=== PATIENT | female | born 1995 ===

== ENCOUNTER → 2023-01-18 13:46 | Outpatient (CLI) | payer OTHER, SELFPAY ==
--- NOTE | 2023-01-18 | DI.RAD.S_ITS ---
PROCEDURE: XR ACUTE ABDOMEN SERIES INDICATIONS: constipation TECHNIQUE: One view chest and two views of the abdomen were acquired. COMPARISON: None. FINDINGS: Surgical changes and devices: None. Chest: Lungs are clear. Heart size is normal. No pleural effusions. No pneumoperitoneum. Abdomen: The bowel gas pattern is nonobstructive. Stomach and small bowel loops appear decompressed. There is some air in the ascending and transverse colon to a normal degree. A normal amount of stool projects over the pelvis, either in the cecum or redundant sigmoid colon. The descending colon is decompressed without significant stool burden. There are no suspicious calcifications. The organ shadows are normal. Bones: No suspicious bony lesions. IMPRESSION: 1. No radiographic evidence of obstipation at this point. 2. No evidence of bowel obstruction. Dictated by: Tosin Cunningham M.D. on 01/18/2023 at 15:55 Approved by: Tosin Cunningham M.D. on 01/18/2023 at 15:58
== END ==
PROVIDERS: PCP Student in an Organized Health Care Education/Training Program; Referring Provider Internal Medicine Gastroenterology; Visit Provider Internal Medicine Gastroenterology
DX: K59.00 Constipation, unspecified (principal)
CPT/HCPCS: 74022